=== PATIENT | male | born 1940 | race Caucasian/White ===

== ENCOUNTER 2017-10-06 08:52 | Day surgery (SDC) | payer MEDICARE, OTHER ==
[2017-10-05 10:26] VITALS: BMI 30.4
[2017-10-06] MEDS ORDERED: PROPOFOL 200 MG/20 ML VIAL ONE (13:55)
--- NOTE | 2017-10-06 16:30 | OP ---
PREPROCEDURE DIAGNOSIS: History of colon polyps. POST-PROCEDURE DIAGNOSES: 1. Diverticulosis coli. 2. Sigmoid polyp, 5 mm by snare polypectomy. 3. Otherwise, normal colonoscopy. RECOMMENDATIONS: 1. Await histopathology. 2. Follow up in the office in 6 weeks with regard to history of chronic pancreatitis. We will make some changes in his Creon regimen. 3. He will be due for repeat pancreatic imaging in 01/2018. ANESTHESIA: TIVA. PROCEDURE IN DETAIL: After the patient was informed of the risks, benefits, possible complications o f endoscopy and perforation, bleeding, reactions to medication and aspiration, informed consent was o btained. The patient was brought to endoscopy suite where he was prepped and draped in standard [facility] ion. Once he was comfortable, a rectal exam performed which was normal. The endoscope was advanced through the anal canal through the colon. Cecum was identified by ileocecal valve and appendiceal or ifice. The scope was slowly removed. The prep was good. No masses or lesions were seen. There wer e diverticulosis coli in the sigmoid colon and there was a 5 mm polyp in the sigmoid colon, removed b y snare polypectomy. Retroflexed views in the rectum were normal. The scope was removed. The patie nt tolerated the procedure well with no complications.
== END 2017-10-06 11:40 | disposition home or self-care (01) ==
LOC: SDC 08:52
PROVIDERS: ATTEND Internal Medicine Gastroenterology
PROC: 0DBN8ZX Excision of Sigmoid Colon, Via Natural or Artificial Opening Endoscopic, Diagnostic (ICD-10-PCS; principal; 2017-10-06)
DX: Z12.11 Encounter for screening for malignant neoplasm of colon (principal); K57.30 Diverticulosis of large intestine without perforation or abscess without bleeding; K86.1 Other chronic pancreatitis; K86.81 Exocrine pancreatic insufficiency; E53.8 Deficiency of other specified B group vitamins; M19.90 Unspecified osteoarthritis, unspecified site; I10 Essential (primary) hypertension; I48.91 Unspecified atrial fibrillation; E78.00 Pure hypercholesterolemia, unspecified; J44.9 Chronic obstructive pulmonary disease, unspecified; E11.9 Type 2 diabetes mellitus without complications; Z87.891 Personal history of nicotine dependence; Z86.010 Personal history of colon polyps; Z88.0 Allergy status to penicillin; Z88.8 Allergy status to other drugs, medicaments and biological substances; Z79.4 Long term (current) use of insulin; Z79.82 Long term (current) use of aspirin; Z79.899 Other long term (current) drug therapy
CPT/HCPCS: 36416; 88304; J2704

== ENCOUNTER 2018-02-01 08:34 | Outpatient (CLI) | payer MEDICARE, OTHER ==
[2018-02-01 09:05] LABS: Estimated GFR-MDRD - POC Greater than 90
[2018-02-01] MEDS ORDERED: Iopamidol 370 76% 100 ML VIAL ONE (15:01)
== END 2018-02-01 08:35 | disposition home or self-care (01) ==
LOC: BICCT 08:34
PROVIDERS: ATTEND Internal Medicine Gastroenterology
DX: K86.1 Other chronic pancreatitis (principal); E53.8 Deficiency of other specified B group vitamins; E55.9 Vitamin D deficiency, unspecified; D35.02 Benign neoplasm of left adrenal gland; N20.0 Calculus of kidney; Z90.49 Acquired absence of other specified parts of digestive tract; Z86.010 Personal history of colon polyps
CPT/HCPCS: 74170; 82565

== ENCOUNTER 2018-06-06 09:58 | Outpatient (CLI) | payer MEDICARE, OTHER ==
[2018-06-06 12:27] LABS: #Eosinphils 0.2 thou/uL (0.0-0.7); #Lymphocytes 1.4 thou/uL (1.20-3.40); #Monocytes 0.6 thou/uL (0.11-0.59); #Neutrophils 5.4 thou/uL (1.40-6.50); %Basophils 0.5 % (0.0-1.0); %Eosinophils 2.8 % (0.0-10.0); %Lymphocytes 18.6 % (21.0-51.0); %Monocytes 7.4 % (0.0-10.0); %Neutrophils 70.7 % (42.0-75.0); Hemoglobin 14.5 g/dL (14.0-18.0); Mean Corpuscular HGB CONC 34.1 g/dL (32.0-36.0); Mean Corpuscular Hemoglobin 30.1 pg (27.0-31.0); Mean Corpuscular Volume 88.1 fL (78.0-98.0); Mean Platelet Volume 8.9 fL (7.4-10.4); Platelet Count 232 thou/uL (130-400); RBC Distribution Width 13.4 % (11.5-14.5); Red Blood Cell (RBC) Count 4.82 mill/uL (4.70-6.10); White Blood Cell (WBC) Count 7.7 thou/uL (4.8-10.8)
[2018-06-06 12:48] LABS: Anion Gap 15 mmol/L (10-20); BUN (Urea Nitrogen) 27 mg/dL (8.4-25.7); Calc. Creatinine Clearance 0 mL/min (70-130); Calcium 9.6 mg/dL (7.8-10.44); Carbon Dioxide 24 mmol/L (23-31); Chloride 104 mmol/L (98-107); Estimated GFR-MDRD 86; Glucose 103 mg/dL (83-110); Potassium 4.1 mmol/L (3.5-5.1); Sodium 139 mmol/L (136-145)
== END 2018-06-06 09:59 | disposition home or self-care (01) ==
LOC: LABBT 09:58
PROVIDERS: ATTEND Internal Medicine Cardiovascular Disease
DX: Z01.812 Encounter for preprocedural laboratory examination (principal); I48.91 Unspecified atrial fibrillation
CPT/HCPCS: 80048; 85025

== ENCOUNTER 2018-06-07 06:08 | Day surgery (SDC) | payer MEDICARE, OTHER ==
[2018-06-06 10:26] VITALS: BMI 31.0
[2018-06-07] MEDS ORDERED: PROPOFOL 20 ML ONE (07:55)
[2018-06-07] MEDS ORDERED: Amiodarone 200 MG TAB ONE (08:38)
[2018-06-07] MEDS ORDERED: PROPOFOL 200 MG/20 ML VIAL ONE (10:59)
--- NOTE | 2018-06-07 11:17 | OP ---
CARDIOLOGY PROCEDURE NOTE: Date: 06/07/18 PROCEDURE: External cardioversion. INDICATION: Atrial fibrillation. DETAILS: The patient was brought to the post cath area in the fasting state. He was sedated. He was given 20 j oules direct current energy through the defibrillator. He did not convert to sinus rhythm. Therefore, he was given 200 joules direct current energy synchronized and converted to sinus rhythm. CONCLUSION: Successful cardioversion.
[2018-06-07] MEDS ORDERED: Amiodarone 200 MG TAB PO SCH (21:00)
[2018-06-29] MEDS ORDERED: Amiodarone 200 MG TAB PO SCH (09:00)
== END 2018-06-07 09:20 | disposition home or self-care (01) ==
LOC: CCL 06:08
PROVIDERS: ATTEND Internal Medicine Cardiovascular Disease
PROC: 5A2204Z Restoration of Cardiac Rhythm, Single (ICD-10-PCS; principal; 2018-06-07)
DX: I48.2 Chronic atrial fibrillation (principal); I25.10 Atherosclerotic heart disease of native coronary artery without angina pectoris; I11.0 Hypertensive heart disease with heart failure; I50.22 Chronic systolic (congestive) heart failure; E11.9 Type 2 diabetes mellitus without complications; Z95.810 Presence of automatic (implantable) cardiac defibrillator; Z79.01 Long term (current) use of anticoagulants; Z79.4 Long term (current) use of insulin; Z79.899 Other long term (current) drug therapy; Z88.0 Allergy status to penicillin; Z88.8 Allergy status to other drugs, medicaments and biological substances
CPT/HCPCS: 92960; J2704

== ENCOUNTER 2019-02-06 07:56 | Outpatient (CLI) | payer MEDICARE, OTHER ==
--- NOTE | 2019-02-06 09:10 | CT ---
CT ABDOMEN AND PELVIS WITH AND WITHOUT IV CONTRAST: Date: 02/06/19 HISTORY: Chronic pancreatitis. Abdominal pain. FINDINGS: The lung bases are clear. There is a 5 mm low density lesion in the lateral segment of the left lobe of the liver, likely cyst. The spleen and right adrenal gland appear normal. Asymmetric prominence of the left adrenal gland is stable since the CT thoracic spine of 06/26/17. There is a 5 mm calculus in the inferior pole of the right kidney and a 3 mm calculus in the upper as pect of the left kidney. No calculi seen in the ureters or the urinary bladder. No hydroureteronephro sis is seen. No enhancing mass is noted on the early postcontrast images. Delayed postcontrast images demonstrate small low density lesions, likely renal cyst. There are calcifications in the pancreas consistent with chronic pancreatitis. No peripancreatic infl ammatory change, fluid, or fluid collections are seen. The patient is post cholecystectomy and lower lumbar spine surgery. There are degenerative changes in the spine. A neurostimulator device is noted in the left gluteal region with leads entering the spin al canal at L1 level. The prostate is enlarged. The small bowel loops are not abnormally dilated. There is sigmoid divertic ulosis. A small, fat-containing left inguinal hernia is present. No portosplenic thrombosis seen. There are vascular calcifications without evidence of aneurysmal dil atation of the abdominal aorta. IMPRESSION: 1. Chronic pancreatitis. 2. Tiny hepatic cysts. 3. Nonobstructing bilateral renal calculi and tiny renal cysts. 4. Prostatic enlargement. 5. Sigmoid diverticulosis. POS: OFF
[2019-02-06] MEDS ORDERED: ISOVUE-370 76%-LOCM 1 ML ONE (10:04)
== END 2019-02-06 07:57 | disposition home or self-care (01) ==
LOC: BICCT 07:56
PROVIDERS: ATTEND Internal Medicine Gastroenterology
DX: K86.1 Other chronic pancreatitis (principal); K76.89 Other specified diseases of liver; N20.0 Calculus of kidney; N28.1 Cyst of kidney, acquired; N40.0 Benign prostatic hyperplasia without lower urinary tract symptoms; K57.30 Diverticulosis of large intestine without perforation or abscess without bleeding
CPT/HCPCS: 74178; 82565; Q9966

== ENCOUNTER 2019-03-13 07:07 | Day surgery (SDC) | payer MEDICARE, OTHER ==
[2019-03-09 14:46] VITALS: BMI 25.5
--- NOTE | 2019-03-13 12:59 | RAD ---
Myelogram lumbar: DATE: 03/13/2019 HISTORY: 78-year-old male presents with recent onset of left lumbar radiculopathy. TECHNIQUE: Signed informed consent obtained. Patient placed prone on fluoroscopy table. Skin over lower back pre pared and draped in usual sterile fashion. 25-gauge needle used to apply buffered lidocaine. 22-gauge spinal needle advanced from right paramedian approach at L5-S1 level, under brief, intermitt ent fluoroscopy. Upon brisk return of clear CSF, a total of 10 mL of CSF was removed. A total of 12 mL of Isovue-M 200 was injected intrathecally. Spinal needle was removed. Patient tolerated the proce dure well. No complications. IMPRESSION: 1. Successful lumbar myelogram. 2. See separate report of CT myelogram.
[2019-03-13] MEDS ORDERED: Iopamidol-M 200 41% 20 ML VIAL ONE (16:01)
--- NOTE | 2019-03-13 16:30 | CT ---
CT lumbar spine with contrast: (CT lumbar myelogram) DATE: 03/13/2019 HISTORY: 78-year-old male with left lumbar radiculopathy. COMPARISON: 05/07/2011 FINDINGS: There is a greater degree of osseous fusion with flowing osteophytes throughout all visualized levels . This has the appearance of ankylosing spondylitis, but the lack of such fusion involving the sacroiliac joints and facet joints superior to L3, makes this much more likely to represent DISH rath er than ankylosing spondylitis. There is loss of lordosis. The previously demonstrated mild anterior wedging of the T12 vertebral body has become slightly worse. This is still chronic. There is disc space narrowing at all visualized levels from T11-T12 through L5-S1. The greatest degree of disc space narrowing is at L4-5. Again noted is the interspinous process device from L3 through L5, c ausing streak artifact, degrading the images of the spinal canal and neural foramina throughout those levels. There are bilateral onlay bone grafts with successful ankylosis of posterior elements f rom L3 through L5-S1. There is successful ankylosis of the bilateral L3-4, L4-5, and L5-S1 facet joints. There is a new dorsal column spinal cord stimulator device, with leads entering the posterior aspect of the spinal canal at T12-L1, and ascending along the posterior epidural space, with lead tips outside of the field of view conus medullaris terminates at L1. There is no high-grade central s misha canal stenosis at any level. The neural foramina are difficult to evaluate for stenosis from L3-4 through L5-S1 because of the streak artifact from the hardware, but there is probably no high-gr bob bony neural foraminal stenosis. There are probably laminectomy defects from L3 through L5-S1. The arrangement and distribution of the cauda equina is difficult to evaluate throughout the levels o f streak artifact from the hardware. There is no spondylolisthesis. No major interval change overall since 2010 other than progression of chronic anterior wedge loss of height of T12, and the sp inal cord stimulator. IMPRESSION: 1.) Interval placement of spinal cord stimulator entering at T12-L1. 2) interval progression of mild old anterior wedge compression fracture deformity of T12. 3) no other significant interval change. 4) old interspinous process device at L3-L4-L5. 5) this causes streak artifact, partially obscuring contents of the spinal canal and neural foramina throughout those levels. 6) outside of those levels, no evidence of focal nerve root impingement. 7) no evidence of high-grade central spinal canal stenosis or high-grade neural foraminal stenosis at any level. 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 9) old laminectomies from L3 through L5-S1. 10) DISH (diffuse idiopathic skeletal hyperostosis).
== END 2019-03-13 10:00 | disposition home or self-care (01) ==
LOC: RAD 07:07
PROVIDERS: ATTEND Anesthesiology Pain Medicine
DX: M54.16 Radiculopathy, lumbar region (principal); M46.1 Sacroiliitis, not elsewhere classified; I10 Essential (primary) hypertension; I48.91 Unspecified atrial fibrillation; E11.9 Type 2 diabetes mellitus without complications; J44.9 Chronic obstructive pulmonary disease, unspecified; Z95.0 Presence of cardiac pacemaker; Z88.0 Allergy status to penicillin
CPT/HCPCS: 62304; 72132; Q9966

== ENCOUNTER 2019-05-30 10:01 | Emergency (ER) | payer MEDICARE, OTHER ==
[2019-05-30 14:34] LABS: Glucose Accucheck Confirmation 184 mg/dl (83-110)
--- NOTE | 2019-05-30 14:44 | RAD ---
LEFT KNEE FOUR VIEWS: HISTORY: Knee replacement nine days ago, excessive pain. FINDINGS: There are postop changes of total knee arthroplasty in good position and alignment. No acute fracture or dislocation is seen. No perihardware lucency is identified to suggest loosening. Soft tissue swel ling is present. POS: OFF
== END 2019-05-31 04:15 ==
LOC: ERS 10:01
DX: T84.89XA Other specified complication of internal orthopedic prosthetic devices, implants and grafts, initial encounter (principal); M25.462 Effusion, left knee; E11.9 Type 2 diabetes mellitus without complications; I48.91 Unspecified atrial fibrillation; I50.9 Heart failure, unspecified
CPT/HCPCS: 36415; 36416; 82947

== ENCOUNTER 2021-03-19 09:24 | Day surgery (SDC) | payer MEDICARE, OTHER ==
[~2021-03-19 09:24] MED LIST: Fluorouracil 100 MG, Enoxaparin Sodium 25 MG, EPINEPHrine 0.3 MG in Ophthalmic Irrigati... IRR SCH
[2021-03-19] MEDS ORDERED: Phenylephrine 2.5% Ophth Soln 5 ML BOT ONE (09:47)
[2021-03-19] MEDS ORDERED: Cyclopentolate 1% Opth Drop 2 ML BOT ONE (09:47)
[2021-03-19] MEDS ORDERED: Midazolam HCl 2 mg/2 ml Vial ONE (10:42)
[2021-03-19] MEDS ORDERED: Fentanyl 100 MCG/2 ML VIAL ONE (10:42)
[2021-03-19] MEDS ORDERED: Enoxaparin Sodium 30 MG/0.3 ML SYRINGE ONE (10:48)
[2021-03-19] MEDS ORDERED: Triamcinolone 40 MG/ML VIAL ONE (10:48)
[2021-03-19] MEDS ORDERED: Lidocaine 4% PF 5 ML AMP ONE (10:48)
[2021-03-19] MEDS ORDERED: Maxitrol 0.1% Opth Oint 3.5 GM TUBE ONE (10:48)
[2021-03-19] MEDS ORDERED: CEFAZOLIN 1 GM VIAL ONE (10:48)
[2021-03-19] MEDS ORDERED: Bupivacaine PF 0.75% SDV 10 ML ONE (10:48)
[2021-03-19] MEDS ORDERED: diphenhydrAMINE 50 MG/ML VIAL ONE (10:48)
[2021-03-19] MEDS ORDERED: Lidocaine 1% PF 5 ML VIAL ONE (10:48)
[2021-03-19] MEDS ORDERED: PROPOFOL 200 MG/20 ML VIAL ONE (10:48)
== END 2021-03-19 12:35 | disposition home or self-care (01) ==
LOC: SDC 09:24
PROVIDERS: ATTEND Ophthalmology Retina Specialist
PROC: 08T43ZZ Resection of Right Vitreous, Percutaneous Approach (ICD-10-PCS; principal; 2021-03-19)
DX: H33.011 Retinal detachment with single break, right eye (principal); I48.91 Unspecified atrial fibrillation; E11.9 Type 2 diabetes mellitus without complications; I10 Essential (primary) hypertension; Z88.0 Allergy status to penicillin; Z88.8 Allergy status to other drugs, medicaments and biological substances
CPT/HCPCS: 36416; 67025; J0171; J0690; J1200; J1650; J2250; J2704; J3010; J3301; J3490; J9190

== ENCOUNTER 2022-11-04 09:53 | Outpatient (CLI) | payer MEDICARE, OTHER | END 2022-11-04 09:54 | disposition home or self-care (01) | LOC: RAD 09:53 | PROVIDERS: ATTEND Family Medicine | DX: M47.816 Spondylosis without myelopathy or radiculopathy, lumbar region (principal); M96.1 Postlaminectomy syndrome, not elsewhere classified; M47.814 Spondylosis without myelopathy or radiculopathy, thoracic region; M51.34 Other intervertebral disc degeneration, thoracic region; Z98.1 Arthrodesis status | CPT/HCPCS: 72070; 72100 ==

== ENCOUNTER 2025-06-07 06:18 | Emergency (ER) | payer MEDICARE, OTHER ==
[2025-06-07 06:34] LABS: #Basophils 0.03 10x3/uL (0.0-0.2); #Eosinophils 0.17 10x3/uL (0.0-0.7); #Monocytes 0.57 10x3/uL (0.11-0.59); #Neutrophils 7.19 10x3/uL (1.40-6.50); %Basophils 0.3 % (0.0-1.0); %Eosinophils 1.9 % (0.0-10.0); %Lymphocytes 10.2 % (21.0-51.0); %Monocytes 6.4 % (0.0-10.0); %Neutrophils 80.3 % (42.0-75.0); Hematocrit 43.4 % (42.0-52.0); Hemoglobin 13.8 g/dL (14.0-18.0); Mean Corpuscular Hemoglobin 28.3 pg (27.0-31.0); Mean Corpuscular Volume 89.1 fL (78.0-98.0); Platelet Count 170 10x3/uL (130-400); Red Blood Cell (RBC) Count 4.87 mill/uL (4.70-6.10); White Blood Cell (WBC) Count 8.95 10x3/uL (4.8-10.8)
[2025-06-07 06:48] LABS: ALT (SGPT) 22 U/L (Less than 45); AST (SGOT) 30 U/L (11-34); Albumin 3.4 g/dL (3.1-4.5); Alkaline Phosphatase 83 U/L (40-110); Anion Gap 13 mmol/L (10-20); BUN (Urea Nitrogen) 35 mg/dL (8.4-25.7); Bilirubin, Total 0.7 mg/dL (0.3-1.2); Calc. Creatinine Clearance 0 mL/min (70-130); Calcium 8.6 mg/dL (7.8-10.44); Carbon Dioxide 24 mmol/L (23-31); Chloride 107 mmol/L (98-107); Globulin 3.0 g/dL (2.4-3.5); Glucose 165 mg/dL (83-110); Potassium 4.3 mmol/L (3.5-5.1); Sodium 140 mmol/L (136-145)
[2025-06-07] MEDS ORDERED: HYDROcodone/Acetaminophen 5/325 mg Tablet ONE (07:21)
== END 2025-06-07 12:53 ==
LOC: ERS 06:18
DX: S22.089A Unspecified fracture of T11-T12 vertebra, initial encounter for closed fracture (principal); E11.9 Type 2 diabetes mellitus without complications; I10 Essential (primary) hypertension; W18.30XA Fall on same level, unspecified, initial encounter; Y93.89 Activity, other specified; Y92.091 Bathroom in other non-institutional residence as the place of occurrence of the external cause
CPT/HCPCS: 12001; 70450; 71250; 72125; 74177; 80053; 84484; 85025; 93005; 96374; 99285; J3010; G0390

== ENCOUNTER 2025-06-22 12:43 | Inpatient (IN) | payer MEDICARE, OTHER ==
[2025-06-22 13:53] LABS: #Basophils 0.04 10x3/uL (0.0-0.2); #Eosinophils 0.10 10x3/uL (0.0-0.7); #Monocytes 0.74 10x3/uL (0.11-0.59); #Neutrophils 7.33 10x3/uL (1.40-6.50); %Basophils 0.4 % (0.0-1.0); %Eosinophils 1.1 % (0.0-10.0); %Lymphocytes 8.2 % (21.0-51.0); %Monocytes 8.2 % (0.0-10.0); %Neutrophils 81.8 % (42.0-75.0); Hematocrit 33.9 % (42.0-52.0); Hemoglobin 10.7 g/dL (14.0-18.0); Mean Corpuscular Hemoglobin 27.8 pg (27.0-31.0); Mean Corpuscular Volume 88.1 fL (78.0-98.0); Platelet Count 283 10x3/uL (130-400); Red Blood Cell (RBC) Count 3.85 mill/uL (4.70-6.10); White Blood Cell (WBC) Count 8.98 10x3/uL (4.8-10.8)
[2025-06-22 14:08] LABS: ALT (SGPT) 15 U/L (Less than 45); AST (SGOT) 21 U/L (11-34); Albumin 2.9 g/dL (3.1-4.5); Alkaline Phosphatase 120 U/L (40-110); Anion Gap 7 mmol/L (10-20); BUN (Urea Nitrogen) 24 mg/dL (8.4-25.7); Bilirubin, Total 0.8 mg/dL (0.3-1.2); Calc. Creatinine Clearance 0 mL/min (70-130); Calcium 8.5 mg/dL (7.8-10.44); Carbon Dioxide 23 mmol/L (23-31); Chloride 108 mmol/L (98-107); Globulin 2.9 g/dL (2.4-3.5); Glucose 106 mg/dL (83-110); Lipase Less than 4 U/L (8-78); Potassium 4.5 mmol/L (3.5-5.1); Sodium 133 mmol/L (136-145)
[2025-06-22] MEDS ORDERED: cefTRIAXone (ROCEPHIN) 2 GM VIAL ONE (15:53)
[2025-06-22] MEDS ORDERED: Calcium Carbonate 500 MG ChewTAB PO PRN (17:27)
[2025-06-22] MEDS ORDERED: Ondansetron PF 4 MG/2 ML Vial IVP PRN (17:27)
[2025-06-22] MEDS ORDERED: Senokot S 8.6-50 MG TAB PO PRN (17:27)
[2025-06-22] MEDS ORDERED: Glucagon 1 MG/ML KIT IM PRN (18:00)
[2025-06-22] MEDS ORDERED: Dextrose 50% Abboject 50 ML SYRINGE SLOW IVP PRN (18:00)
[2025-06-22] MEDS: Carvedilol 25 MG TAB PO SCH (20:44)
[2025-06-22] MEDS ORDERED: Insulin Glargine 30 UNITS/0.3 ML VIAL SC SCH ×2 (21:00)
[2025-06-23 01:25] VITALS: BMI 31.0
[2025-06-23 06:50] LABS: #Basophils 0.03 10x3/uL (0.0-0.2); #Eosinophils 0.18 10x3/uL (0.0-0.7); #Monocytes 0.79 10x3/uL (0.11-0.59); #Neutrophils 7.70 10x3/uL (1.40-6.50); %Basophils 0.3 % (0.0-1.0); %Eosinophils 1.9 % (0.0-10.0); %Lymphocytes 7.6 % (21.0-51.0); %Monocytes 8.3 % (0.0-10.0); %Neutrophils 81.3 % (42.0-75.0); Hematocrit 32.2 % (42.0-52.0); Hemoglobin 10.2 g/dL (14.0-18.0); Mean Corpuscular Hemoglobin 28.0 pg (27.0-31.0); Mean Corpuscular Volume 88.5 fL (78.0-98.0); Platelet Count 295 10x3/uL (130-400); Red Blood Cell (RBC) Count 3.64 mill/uL (4.70-6.10); White Blood Cell (WBC) Count 9.48 10x3/uL (4.8-10.8)
[2025-06-23 07:17] LABS: Anion Gap 12 mmol/L (10-20); BUN (Urea Nitrogen) 23 mg/dL (8.4-25.7); Calc. Creatinine Clearance 63 mL/min (70-130); Calcium 8.5 mg/dL (7.8-10.44); Carbon Dioxide 26 mmol/L (23-31); Chloride 103 mmol/L (98-107); Glucose 120 mg/dL (83-110); Potassium 4.4 mmol/L (3.5-5.1); Sodium 137 mmol/L (136-145)
[2025-06-23] MEDS: Apixaban 5 MG TAB PO SCH (07:17)
[2025-06-23] MEDS: metFORMIN XR 500 MG ER.TAB PO SCH (08:36)
[2025-06-23] MEDS: Pancrelipase DR 12,000 1 CAP PO SCH ×2 (08:36→12:36)
[2025-06-23] MEDS: glipiZIDE XL 5 mg ER.TAB PO SCH (08:36)
[2025-06-23] MEDS: Cyclobenzaprine 10 MG TAB PO PRN (08:39)
[2025-06-23] MEDS: Amiodarone 200 MG TAB PO SCH (08:39)
[2025-06-23] MEDS: cefTRIAXone\\ROCEPHIN 1 GM in Sodium Chloride 0.9% 100 ML IVPB SCH (08:40)
[2025-06-23] MEDS ORDERED: Enoxaparin 40 MG (0.4 mL) SYRINGE SC SCH (09:00)
[2025-06-23] MEDS: Furosemide 20 MG TAB PO SCH (11:06)
[2025-06-23] MEDS: Losartan 25 MG TAB PO SCH (11:06)
[2025-06-23] MEDS: Carvedilol 25 MG TAB PO SCH (20:33)
[2025-06-24 06:37] LABS: #Basophils 0.03 10x3/uL (0.0-0.2); #Eosinophils 0.17 10x3/uL (0.0-0.7); #Monocytes 0.65 10x3/uL (0.11-0.59); #Neutrophils 4.25 10x3/uL (1.40-6.50); %Basophils 0.5 % (0.0-1.0); %Eosinophils 2.9 % (0.0-10.0); %Lymphocytes 13.6 % (21.0-51.0); %Monocytes 10.9 % (0.0-10.0); %Neutrophils 71.6 % (42.0-75.0); Hematocrit 33.3 % (42.0-52.0); Hemoglobin 10.4 g/dL (14.0-18.0); Mean Corpuscular Hemoglobin 27.5 pg (27.0-31.0); Mean Corpuscular Volume 88.1 fL (78.0-98.0); Platelet Count 280 10x3/uL (130-400); Red Blood Cell (RBC) Count 3.78 mill/uL (4.70-6.10); White Blood Cell (WBC) Count 5.94 10x3/uL (4.8-10.8)
[2025-06-24 06:50] LABS: Anion Gap 15 mmol/L (10-20); BUN (Urea Nitrogen) 26 mg/dL (8.4-25.7); Calc. Creatinine Clearance 72 mL/min (70-130); Calcium 8.5 mg/dL (7.8-10.44); Carbon Dioxide 24 mmol/L (23-31); Chloride 104 mmol/L (98-107); Glucose 104 mg/dL (83-110); Potassium 4.2 mmol/L (3.5-5.1); Sodium 139 mmol/L (136-145)
[2025-06-24] MEDS: Dapagliflozin Propanediol 10 MG TAB PO SCH (09:08)
[2025-06-24] MEDS: Losartan 25 MG TAB PO SCH (09:08)
[2025-06-24] MEDS: Furosemide 20 MG TAB PO SCH (09:09)
[2025-06-24] MEDS: Acetaminophen 325 MG TAB PO PRN (22:21)
[2025-06-25 05:40] LABS: #Basophils 0.05 10x3/uL (0.0-0.2); #Eosinophils 0.25 10x3/uL (0.0-0.7); #Monocytes 0.68 10x3/uL (0.11-0.59); #Neutrophils 4.46 10x3/uL (1.40-6.50); %Basophils 0.8 % (0.0-1.0); %Eosinophils 3.9 % (0.0-10.0); %Lymphocytes 14.5 % (21.0-51.0); %Monocytes 10.6 % (0.0-10.0); %Neutrophils 69.4 % (42.0-75.0); Hematocrit 34.5 % (42.0-52.0); Hemoglobin 11.0 g/dL (14.0-18.0); Mean Corpuscular Hemoglobin 28.2 pg (27.0-31.0); Mean Corpuscular Volume 88.5 fL (78.0-98.0); Platelet Count 299 10x3/uL (130-400); Red Blood Cell (RBC) Count 3.90 mill/uL (4.70-6.10); White Blood Cell (WBC) Count 6.42 10x3/uL (4.8-10.8)
[2025-06-25 05:53] LABS: Anion Gap 9 mmol/L (10-20); BUN (Urea Nitrogen) 23 mg/dL (8.4-25.7); Calc. Creatinine Clearance 71 mL/min (70-130); Calcium 8.5 mg/dL (7.8-10.44); Carbon Dioxide 26 mmol/L (23-31); Chloride 106 mmol/L (98-107); Glucose 101 mg/dL (83-110); Potassium 4.0 mmol/L (3.5-5.1); Sodium 137 mmol/L (136-145)
[2025-06-26] MEDS ORDERED: Benzocaine/Menthol 1 LOZ LOZ PO PRN (05:02)
[2025-06-26 06:21] LABS: #Basophils 0.04 10x3/uL (0.0-0.2); #Eosinophils 0.20 10x3/uL (0.0-0.7); #Monocytes 0.64 10x3/uL (0.11-0.59); #Neutrophils 6.36 10x3/uL (1.40-6.50); %Basophils 0.5 % (0.0-1.0); %Eosinophils 2.5 % (0.0-10.0); %Lymphocytes 10.6 % (21.0-51.0); %Monocytes 7.9 % (0.0-10.0); %Neutrophils 77.9 % (42.0-75.0); Hematocrit 34.4 % (42.0-52.0); Hemoglobin 10.9 g/dL (14.0-18.0); Mean Corpuscular Hemoglobin 28.0 pg (27.0-31.0); Mean Corpuscular Volume 88.4 fL (78.0-98.0); Platelet Count 309 10x3/uL (130-400); Red Blood Cell (RBC) Count 3.89 mill/uL (4.70-6.10); White Blood Cell (WBC) Count 8.15 10x3/uL (4.8-10.8)
[2025-06-26 06:45] LABS: Anion Gap 12 mmol/L (10-20); BUN (Urea Nitrogen) 24 mg/dL (8.4-25.7); Calc. Creatinine Clearance 70 mL/min (70-130); Calcium 8.7 mg/dL (7.8-10.44); Carbon Dioxide 25 mmol/L (23-31); Chloride 105 mmol/L (98-107); Glucose 121 mg/dL (83-110); Potassium 3.9 mmol/L (3.5-5.1); Sodium 138 mmol/L (136-145)
[2025-06-26 11:54] VITALS: BP 140/68; TEMP 97.8
== END 2025-06-26 15:13 | DRG 543 ==
LOC: ERS 12:43 → SUATTDRO 12:43 → SURG A 18:25 → OBSVTOIN 06-23 11:39
PROVIDERS: ADMIT Internal Medicine; ATTEND Internal Medicine
DX: M48.54XA Collapsed vertebra, not elsewhere classified, thoracic region, initial encounter for fracture (principal); E87.1 Hypo-osmolality and hyponatremia; L03.114 Cellulitis of left upper limb; K86.89 Other specified diseases of pancreas; E78.5 Hyperlipidemia, unspecified; E11.9 Type 2 diabetes mellitus without complications; I10 Essential (primary) hypertension; Z66 Do not resuscitate; I48.91 Unspecified atrial fibrillation; Z95.0 Presence of cardiac pacemaker; I25.10 Atherosclerotic heart disease of native coronary artery without angina pectoris; I50.9 Heart failure, unspecified; R26.89 Other abnormalities of gait and mobility; D64.9 Anemia, unspecified; Z88.1 Allergy status to other antibiotic agents; Z88.8 Allergy status to other drugs, medicaments and biological substances; N18.9 Chronic kidney disease, unspecified; Z79.84 Long term (current) use of oral hypoglycemic drugs; B95.61 Methicillin susceptible Staphylococcus aureus infection as the cause of diseases classified elsewhere; Z79.899 Other long term (current) drug therapy
CPT/HCPCS: 36415; 36416; 80048; 80053; 83605; 83690; 84145; 85025; 86141; 87040; 87070; 87077; 87186; 87205; 96365; 96366; 96375; 97139; G0378; J0696; J1815